=== PATIENT | male | born 1940 | race Two or more races ===

== ENCOUNTER 2025-07-16 17:45 | Inpatient (IN) | payer MEDICARE, MEDICAID ==
[~2025-07-16] VITALS: Ht 165.1 cm; Wt 56.2 kg
[2025-07-16] MEDS: IPRATROPIUM BROMIDE (0.02%) 0.5MG/2.5ML NEB HHN SCH (08:00)
[2025-07-16] MEDS: IPRATROPIUM BROMIDE (0.02%) 0.5MG/2.5ML NEB HHN ONE (18:22)
[2025-07-16] MEDS: ALBUTEROL (0.083%) 2.5MG/3ML NEB HHN ONE (18:23)
[2025-07-16 18:24] VITALS: PULSE 136; RESP 31; O2SAT 95
[2025-07-16] MEDS: METHYLPREDNISOLONE SOD SUCC 125MG/2ML (ACT-O-VIAL) IV ONE (18:34)
[2025-07-16] MEDS: PIPERACILLIN/TAZO 3.375G/50ML 50 ML IV ONE (18:34)
[2025-07-16] MEDS: SODIUM CHLORIDE 0.9% 1,000 ML IV ONE (18:35)
[2025-07-16 18:41] LABS: BASOPHILS % 0.7 % (0.0-2.0); EOSINOPHILS % 1.3 % (0.0-5.0); HEMATOCRIT. 40.9 % (42.0-52.0); HEMOGLOBIN. 13.5 g/dL (14.0-18.0); LYMPHOCYTES % 54.1 % (20.0-50.0); MEAN PLATELET VOLUME 10.0 fl (7.4-10.4); MONOCYTES % 4.5 % (2.0-8.0); NEUTROPHILS % 39.4 % (40.0-76.0); PLATELET 203 x1000/uL (130-400); RED BLOOD CELL COUNT 4.32 mill/uL (4.7-6.1); RED CELL DISTRIBUTION WIDTH 17.9 % (11.6-14.6)
[2025-07-16 18:52] LABS: INR 1.4
[2025-07-16 18:53] LABS: CREATININE 1.0 mg/dL (0.6-1.3); UREA NITROGEN BLOOD 14 mg/dL (9-23)
[2025-07-16 18:54] LABS: TROPONIN I HIGH SENSITIVITY 37 ng/L (3.0-53)
[2025-07-16 18:55] LABS: ASPARTATE AMINOTRANSFERASE 113 IU/L (<34); BILIRUBIN DIRECT 4.4 mg/dL (<=3.0); BILIRUBIN TOTAL 5.9 mg/dL (0.1-1.0); PROTEIN TOTAL 6.9 g/dL (6.0-8.3)
[2025-07-16 19:04] LABS: BG BASE EXCESS -10.5 mmol/L (-2.0-3.0); BG CARBOXYHEMOGLOBIN 1.3 % (0.5-1.5); BG DEOXYHEMOGLOBIN 6.0 % (0.0-5.0); BG FRACTION INSPIRED OXYGEN 60; BG HCO3 ACT 19.5 mmol/L (21.0-28.0); BG METHEMOGLOBIN 0.3 % (0.5-1.5); BG OXYGEN SATURATION 93.9 % (94.0-98.0); BG OXYHEMOGLOBIN 92.4 % (94.0-98.0); BG PCO2 61.8 mmHg (35.0-48.0); BG PH 7.118 (7.350-7.450); BG PO2 94.5 mmHg (83.0-108.0); BG SAMPLE SITE LEFT RADIAL; BG TOTAL HEMOGLOBIN 13.9 g/dL (13.5-17.5); BG VENT MODE HHN
[2025-07-16] MEDS: VANCOMYCIN 1G PREMIX 200 ML IV ONE (19:10)
[2025-07-16 19:30] VITALS: RESP 22
[2025-07-16] MEDS ORDERED: ALBUTEROL (0.083%) 2.5MG/3ML NEB HHN ONE (20:45)
[2025-07-16] MEDS ORDERED: AMIODARONE 360MG/200ML 200 ML IV SCH (21:00)
[2025-07-16] MEDS: MAGNESIUM 2 G PREMIX 50 ML IV ONE (21:23)
[2025-07-16 21:59] LABS: BG BASE EXCESS -8.9 mmol/L (-2.0-3.0); BG CARBOXYHEMOGLOBIN 0.9 % (0.5-1.5); BG DEOXYHEMOGLOBIN 1.4 % (0.0-5.0); BG FRACTION INSPIRED OXYGEN 100; BG HCO3 ACT 19.4 mmol/L (21.0-28.0); BG METHEMOGLOBIN 0.3 % (0.5-1.5); BG OXYGEN SATURATION 98.6 % (94.0-98.0); BG OXYHEMOGLOBIN 97.4 % (94.0-98.0); BG PCO2 51.4 mmHg (35.0-48.0); BG PH 7.194 (7.350-7.450); BG PO2 280.0 mmHg (83.0-108.0); BG SAMPLE SITE RIGHT RADIAL; BG TOTAL HEMOGLOBIN 13.9 g/dL (13.5-17.5); BG VENT MODE MASK - BIPAP; BG VENT RATE 20.0 set
[2025-07-16] MEDS: AMIODARONE HCL 900 MG in DEXT 5% WATER 500 ML IV SCH (22:06)
[2025-07-16] MEDS ORDERED: ONDANSETRON HCL 4MG/2ML INJ IV PRN (22:15)
[2025-07-17] VITALS (16 sets, daily range): BP systolic 110–124; BP diastolic 47–60; PULSE 79–120; RESP 14–34; TEMP 36.4–37.4; O2SAT 98–100
[2025-07-17 06:41] LABS: HEMATOCRIT. 39.3 % (42.0-52.0); HEMOGLOBIN. 13.0 g/dL (14.0-18.0); MEAN PLATELET VOLUME 9.8 fl (7.4-10.4); PLATELET 169 x1000/uL (130-400); RED BLOOD CELL COUNT 4.16 mill/uL (4.7-6.1); RED CELL DISTRIBUTION WIDTH 17.7 % (11.6-14.6)
[2025-07-17] MEDS: PIPERACILLIN/TAZO 3.375G/50ML 50 ML IV SCH (06:45)
[2025-07-17 06:52] LABS: CREATININE 1.2 mg/dL (0.6-1.3); TRIGLYCERIDE 75.0 mg/dL (0-150); UREA NITROGEN BLOOD 25.0 mg/dL (9-23)
[2025-07-17 06:53] LABS: LDL CHOLESTEROL 84.0 mg/dL (5-100)
[2025-07-17 08:22] LABS: CLARITY URINE CLOUDY (CLEAR); COLOR URINE DARK YELLOW (YELLOW)
[2025-07-17 08:23] LABS: GLUCOSE URINE 1+ (NEGATIVE); KETONES URINE NEGATIVE (NEGATIVE); OCCULT BLOOD URINE TRACE (NEGATIVE); PH URINE 5.0 (4.5-8.0); PROTEIN URINE 2+ (NEGATIVE); SPECIFIC GRAVITY URINE 1.016 (1.005-1.030)
[2025-07-17] MEDS: METHYLPREDNISOLONE SOD SUCC 40MG/ML (ACT-O-VIAL) IV SCH (08:23)
[2025-07-17 08:24] LABS: LEUKOCYTE ESTERASE URINE TRACE (NEGATIVE); NITRITE URINE NEGATIVE (NEGATIVE); UROBILINOGEN URINE 1.0 E.U./dL (0.2-1.0)
[2025-07-17 08:33] LABS: SQUAMOUS EPITHELIAL CELL URINE RARE /lpf (RARE/1+)
[2025-07-17 08:35] LABS: RBC URINE 0-2 /hpf (0-2)
[2025-07-17 08:36] LABS: BACTERIA URINE 2+; YEAST URINE NONE SEEN
[2025-07-17 08:46] LABS: FOLIC ACID (FOLATE) SERUM 22.61 ng/mL (>5.38); VITAMIN B12 SERUM 7597 pg/mL (211-911)
[2025-07-17] MEDS ORDERED: BUDESONIDE 0.25MG/2ML NEB HHN SCH (09:00)
[2025-07-17 09:50] LABS: PHOSPHORUS 5.3 mg/dL (2.5-4.9)
[2025-07-17] MEDS: PANTOPRAZOLE SODIUM 40 MG/VIAL IV SCH (11:27)
[2025-07-17 13:52] LABS: BG BASE EXCESS -4.8 mmol/L (-2.0-3.0); BG CARBOXYHEMOGLOBIN 0.9 % (0.5-1.5); BG DEOXYHEMOGLOBIN 1.9 % (0.0-5.0); BG FRACTION INSPIRED OXYGEN 40; BG HCO3 ACT 19.0 mmol/L (21.0-28.0); BG METHEMOGLOBIN 0.3 % (0.5-1.5); BG OXYGEN SATURATION 98.1 % (94.0-98.0); BG OXYHEMOGLOBIN 96.9 % (94.0-98.0); BG PCO2 31.7 mmHg (35.0-48.0); BG PH 7.396 (7.350-7.450); BG PO2 150.6 mmHg (83.0-108.0); BG SAMPLE SITE RIGHT RADIAL; BG TOTAL HEMOGLOBIN 12.7 g/dL (13.5-17.5); BG VENT MODE NASAL CANNULA
[2025-07-17] MEDS: IPRATROPIUM BROMIDE (0.02%) 0.5MG/2.5ML NEB HHN ONE (15:51)
[2025-07-17] MEDS: LACTULOSE ENEMA 1,000ML BOTTLE PR NR (16:22)
[2025-07-17] MEDS: FUROSEMIDE 40MG/4ML VIAL IVP SCH (16:22)
[2025-07-17] MEDS ORDERED: MEROPENEM 1,000 MG in SODIUM CHLORIDE 0.9% 100 ML IV SCH (16:30)
[2025-07-17] MEDS: MEROPENEM 1G/100ML 100 ML IV SCH (18:59)
[2025-07-17] MEDS: ENOXAPARIN 60MG/0.6ML SYR SUBCUT SCH (18:59)
[2025-07-17] MEDS: METOPROLOL TARTRATE 25MG TABLET PO SCH (20:44)
[2025-07-18] VITALS (20 sets, daily range): BP systolic 111–156; BP diastolic 37–101; PULSE 69–88; RESP 15–27; TEMP 36.4–36.9; O2SAT 95–100
[2025-07-18 07:12] LABS: CREATININE 1.2 mg/dL (0.6-1.3)
[2025-07-18 07:13] LABS: UREA NITROGEN BLOOD 29.0 mg/dL (9-23)
[2025-07-18 07:20] LABS: HEMATOCRIT. 34.4 % (42.0-52.0); HEMOGLOBIN. 11.7 g/dL (14.0-18.0); MEAN PLATELET VOLUME 10.2 fl (7.4-10.4); PLATELET 144 x1000/uL (130-400); RED BLOOD CELL COUNT 3.72 mill/uL (4.7-6.1); RED CELL DISTRIBUTION WIDTH 17.4 % (11.6-14.6)
[2025-07-18 11:03] LABS: ASPARTATE AMINOTRANSFERASE 108 IU/L (<34); BILIRUBIN DIRECT 2.3 mg/dL (<=3.0)
[2025-07-18 11:04] LABS: BILIRUBIN TOTAL 2.9 mg/dL (0.1-1.0); PROTEIN TOTAL 5.8 g/dL (6.0-8.3)
[2025-07-18 12:39] LABS: HEPATITIS A AB IGM NEGATIVE (Negative); HEPATITIS B CORE AB IGM NEGATIVE (Negative)
[2025-07-18 12:40] LABS: HEPATITIS C AB NON REACTIVE (Neg) (Negative)
[2025-07-18] MEDS: MEROPENEM 1G/100ML 100 ML IV SCH (12:45)
[2025-07-18 12:59] LABS: BAND% 5.0 % (1.0-6.0); LYMPHOCYTES % MANUAL 3.0 % (20.0-50.0); MONOCYTES % MANUAL 5.0 % (2.0-8.0); NEUTROPHILS % MANUAL 87.0 % (45.0-75.0); PLATELET ESTIMATE NORMAL
[2025-07-18 15:45] LABS: LYMPHOCYTES % MANUAL 9.0 % (20.0-50.0); MONOCYTES % MANUAL 3.0 % (2.0-8.0); NEUTROPHILS % MANUAL 88.0 % (45.0-75.0); PLATELET ESTIMATE NORMAL
[2025-07-19] VITALS (14 sets, daily range): BP systolic 104–145; BP diastolic 37–56; PULSE 65–87; RESP 13–24; TEMP 36.2–36.7; O2SAT 92–100
[2025-07-19 06:50] LABS: HEMATOCRIT. 34.9 % (42.0-52.0); HEMOGLOBIN. 11.5 g/dL (14.0-18.0); MEAN PLATELET VOLUME 10.2 fl (7.4-10.4); PLATELET 162 x1000/uL (130-400); RED BLOOD CELL COUNT 3.74 mill/uL (4.7-6.1); RED CELL DISTRIBUTION WIDTH 17.4 % (11.6-14.6)
[2025-07-19 07:00] LABS: CREATININE 0.6 mg/dL (0.6-1.3); UREA NITROGEN BLOOD 50 mg/dL (9-23)
[2025-07-19] MEDS: LACTULOSE 20G/30ML UDC PO SCH ×2 (08:59→09:30)
[2025-07-19] MEDS: BUDESONIDE 0.5MG/2ML NEB HHN SCH (09:16)
[2025-07-19 10:13] LABS: ASPARTATE AMINOTRANSFERASE 125 IU/L (<34); BILIRUBIN DIRECT 2.1 mg/dL (<=3.0); BILIRUBIN TOTAL 2.6 mg/dL (0.1-1.0); PROTEIN TOTAL 5.4 g/dL (6.0-8.3)
[2025-07-19 17:11] LABS: LYMPHOCYTES % MANUAL 9.0 % (20.0-50.0); MONOCYTES % MANUAL 5.0 % (2.0-8.0); NEUTROPHILS % MANUAL 86.0 % (45.0-75.0); PLATELET ESTIMATE NORMAL
[2025-07-19] MEDS: LOSARTAN 25 MG TABLET PO NR (20:00)
[2025-07-20] VITALS (12 sets, daily range): BP systolic 100–118; BP diastolic 37–49; PULSE 62–111; RESP 15–23; TEMP 36.1–36.8; O2SAT 95–99
[2025-07-20 07:51] LABS: BASOPHILS % 0.0 % (0.0-2.0); EOSINOPHILS % 0.1 % (0.0-5.0); HEMATOCRIT. 39.7 % (42.0-52.0); HEMOGLOBIN. 13.1 g/dL (14.0-18.0); LYMPHOCYTES % 10.7 % (20.0-50.0); MEAN PLATELET VOLUME 9.8 fl (7.4-10.4); MONOCYTES % 7.3 % (2.0-8.0); NEUTROPHILS % 81.9 % (40.0-76.0); PLATELET 164 x1000/uL (130-400); RED BLOOD CELL COUNT 4.28 mill/uL (4.7-6.1); RED CELL DISTRIBUTION WIDTH 17.2 % (11.6-14.6)
[2025-07-20 08:01] LABS: CREATININE 0.9 mg/dL (0.6-1.3); UREA NITROGEN BLOOD 39 mg/dL (9-23)
[2025-07-20 08:02] LABS: ASPARTATE AMINOTRANSFERASE 76 IU/L (<34)
[2025-07-20 08:03] LABS: BILIRUBIN TOTAL 2.4 mg/dL (0.1-1.0); PROTEIN TOTAL 5.7 g/dL (6.0-8.3)
[2025-07-21] VITALS (12 sets, daily range): BP systolic 107–123; BP diastolic 40–52; PULSE 76–92; RESP 17–25; TEMP 36.6–36.8; O2SAT 97–99
[2025-07-21 07:13] LABS: BASOPHILS % 0.1 % (0.0-2.0); EOSINOPHILS % 0.4 % (0.0-5.0); HEMATOCRIT. 41.3 % (42.0-52.0); HEMOGLOBIN. 13.8 g/dL (14.0-18.0); LYMPHOCYTES % 15.0 % (20.0-50.0); MEAN PLATELET VOLUME 9.8 fl (7.4-10.4); MONOCYTES % 7.5 % (2.0-8.0); NEUTROPHILS % 77.0 % (40.0-76.0); PLATELET 160 x1000/uL (130-400); RED BLOOD CELL COUNT 4.47 mill/uL (4.7-6.1); RED CELL DISTRIBUTION WIDTH 17.1 % (11.6-14.6)
[2025-07-21 07:49] LABS: CREATININE 0.9 mg/dL (0.6-1.3); UREA NITROGEN BLOOD 35 mg/dL (9-23)
[2025-07-21 07:51] LABS: ASPARTATE AMINOTRANSFERASE 54 IU/L (<34)
[2025-07-21 07:52] LABS: BILIRUBIN TOTAL 2.5 mg/dL (0.1-1.0); PROTEIN TOTAL 5.6 g/dL (6.0-8.3)
[2025-07-21] MEDS: LACTULOSE 20G/30ML UDC PO SCH (10:05)
[2025-07-21] MEDS: LOSARTAN 25 MG TABLET PO SCH (10:06)
[2025-07-21] MEDS ORDERED: APIX5TAB PO (13:34)
[2025-07-21] MEDS ORDERED: LOSA25TA26 PO (13:34)
[2025-07-21] MEDS ORDERED: FURO-151 PO (13:34)
[2025-07-21] MEDS ORDERED: METO25TA6 PO (13:34)
[2025-07-21] MEDS ORDERED: LACT10SO81 MT (13:36)
== END 2025-07-21 18:43 | DRG 871 ==
LOC: ER 17:45 → 5EST 21:17 → EDBEDREQSVC 21:21 → EDBEDREQTM 21:21 → EDBEDREQ 21:21 → ENRESERV 23:47
PROVIDERS: ADMIT Internal Medicine; ATTEND Internal Medicine
PROC: 5A09357 Assistance with Respiratory Ventilation, Less than 24 Consecutive Hours, Continuous Positive Airway Pressure (ICD-10-PCS; principal; 2025-07-16)
PROC: 5A09357 Assistance with Respiratory Ventilation, Less than 24 Consecutive Hours, Continuous Positive Airway Pressure (ICD-10-PCS; 2025-07-17)
DX: A41.9 Sepsis, unspecified organism (principal); G93.41 Metabolic encephalopathy; I21.A1 Myocardial infarction type 2; J96.01 Acute respiratory failure with hypoxia; J18.9 Pneumonia, unspecified organism; K83.1 Obstruction of bile duct; I50.23 Acute on chronic systolic (congestive) heart failure; K81.0 Acute cholecystitis; E72.20 Disorder of urea cycle metabolism, unspecified; J44.0 Chronic obstructive pulmonary disease with (acute) lower respiratory infection; K83.09 Other cholangitis; Z79.01 Long term (current) use of anticoagulants; E46 Unspecified protein-calorie malnutrition; I11.0 Hypertensive heart disease with heart failure; D64.9 Anemia, unspecified; K76.0 Fatty (change of) liver, not elsewhere classified; I35.1 Nonrheumatic aortic (valve) insufficiency; I70.0 Atherosclerosis of aorta; E87.4 Mixed disorder of acid-base balance; Z66 Do not resuscitate; K82.8 Other specified diseases of gallbladder; M85.80 Other specified disorders of bone density and structure, unspecified site; I48.0 Paroxysmal atrial fibrillation; Z79.899 Other long term (current) drug therapy; Z87.891 Personal history of nicotine dependence; Z68.20 Body mass index [BMI] 20.0-20.9, adult
CPT/HCPCS: 36415; 36600; 71045; 76604; 76705; 78227; 80048; 80053; 80061; 80076; 81003; 82140; 82375; 82550; 82607; 82728; 82746; 82805; 83540; 83550; 83605; 83735; 83880; 84100; 84145; 84484; 85025; 86705; 86709; 86850; 86900; 87340; 92610; 93005; 93306; 93970; 94070; 94640; 94660; 94664; 98960; 99291; 99292; A9537; J0282; J1650; J1938; J2185; J2470; J2543; J2919; J3373; J3475; J7030; J7060; J7626